=== PATIENT | female | born 1970 | race Caucasian/White ===

== ENCOUNTER 2021-06-02 16:27 | Observation (INO) | payer BC ==
[~2021-06-02] VITALS: Ht 157.5 cm; Wt 82.1 kg
[2021-06-02] MEDS ORDERED: ASPIRIN 325 MG TAB PO ONE (18:15)
[2021-06-02] MEDS ORDERED: ONDANSETRON HCL INJ 2MG/ML 2ML 2 MG/ML VIAL IV PRN (18:30)
[2021-06-02] MEDS ORDERED: ASPIRIN 81 MG CHEW TAB PO ONE (18:30)
[2021-06-02] MEDS ORDERED: ASPIRIN 325 MG TAB ONE (18:34)
[2021-06-02 19:40] VITALS: BP 154/76
[2021-06-02 20:08] VITALS: BP 154/76
[2021-06-02 22:12] VITALS: BP 154/76
[2021-06-02] MEDS ORDERED: OMEPRAZOLE20 MG PO (23:18)
[2021-06-02] MEDS ORDERED: PHENDIMETRAZIN105 MG PO (23:18)
[2021-06-02 23:50] VITALS: BP 130/63
[2021-06-03] VITALS (8 sets, daily range): BP systolic 120–147; BP diastolic 55–88
[2021-06-03] MEDS ORDERED: DIPHENHYDRAMINE HCL 25 MG CAP PO PRN (01:15)
[2021-06-03] MEDS ORDERED: HYDRALAZINE HCL 20 MG/ML VIAL IV PRN (01:15)
[2021-06-03] MEDS ORDERED: POTASSIUM CHLORIDE 20 MEQ TAB CR PO PRN (01:15)
[2021-06-03] MEDS ORDERED: LIDOCAINE 4% PATCH TP PRN (01:15)
[2021-06-03] MEDS ORDERED: MELATONIN 5 MG TABLET PO PRN (01:15)
[2021-06-03] MEDS ORDERED: DEXTROSE 50% SYRINGE 50 ML IV PRN (01:15)
[2021-06-03] MEDS ORDERED: BENZONATATE 100 MG CAP PO PRN (01:15)
[2021-06-03] MEDS ORDERED: SIMETHICONE 80 MG CHEW PO PRN (01:15)
[2021-06-03] MEDS ORDERED: HYDROCODONE/APAP 5MG-325MG TAB PO PRN (01:15)
[2021-06-03] MEDS ORDERED: ALBUTEROL/IPRATROPIUM 3 ML NEB NEB PRN (01:15)
[2021-06-03] MEDS ORDERED: DOCUSATE SODIUM 100 MG CAP PO PRN (01:15)
[2021-06-03] MEDS ORDERED: ACETAMINOPHEN 325 MG TAB PO PRN (01:15)
[2021-06-03] MEDS ORDERED: ONDANSETRON HCL INJ 2MG/ML 2ML 2 MG/ML VIAL IV PRN (01:15)
[2021-06-03 02:14] LABS: CREATINE KINASE MB 0.6 ng/mL (0-5.0)
[2021-06-03 05:19] LABS: CHOL/HDL RATIO 4.2 (3.0-3.6); MAGNESIUM 1.9 MG/DL (1.3-2.1)
[2021-06-03 05:42] LABS: THYROID STIMULATING HORMONE 5.423 uIU/mL (0.350-4.940)
[2021-06-03] MEDS: PANTOPRAZOLE SOD 40 MG TABEC PO SCH (07:30)
[2021-06-03] MEDS: ASPIRIN 325 MG TAB EC PO SCH (09:00)
[2021-06-03 10:29] LABS: BASOPHILS # (AUTO) 0.1 (0.0-0.1); BASOPHILS % 0.7 % (0.0-1.0); EOSINOPHILS # (AUTO) 0.1 (0.0-0.4); EOSINOPHILS % 1.6 % (0.0-6.0); HEMATOCRIT 36.6 % (34.2-44.1); HEMOGLOBIN 11.6 g/dL (12.0-16.0); LYMPHOCYTES # (AUTO) 2.2 (1.0-3.2); LYMPHOCYTES % 32.5 % (18.0-39.1); MEAN CORPUSCULAR HEMOGLOBIN 32.4 pg (28-32); MEAN CORPUSCULAR HGB CONC 31.7 g/dL (31-35); MEAN CORPUSCULAR VOLUME 102.2 fL (81-99); MONOCYTES # (AUTO) 0.6 (0.2-0.8); MONOCYTES % 8.2 % (4.4-11.3); NEUTROPHILS # (AUTO) 3.8 (2.1-6.9); NEUTROPHILS % 56.9 % (38.7-80.0); PLATELET COUNT 316 x10e3/uL (140-360); RED BLOOD COUNT 3.58 x10e6/uL (3.6-5.1); RED CELL DISTRIBUTION WIDTH 14.1 % (11.7-14.4)
[2021-06-03 10:32] LABS: CREATINE KINASE 42 IU/L (29-168)
[2021-06-03 11:04] LABS: ALBUMIN 3.4 g/dL (3.5-5.0); ANION GAP 12.7 mmol/L (8-16); CALCIUM 8.7 mg/dL (8.4-10.2); CHOL/HDL RATIO 4.3 (3.0-3.6); CREATININE, SERUM 0.7 mg/dL (0.57-1.11); POTASSIUM 3.7 mmol/L (3.5-5.1)
[2021-06-03 11:23] LABS: THYROID STIMULATING HORMONE 4.346 uIU/mL (0.350-4.940)
[2021-06-03] MEDS ORDERED: MECLIZINE HCL 12.5 MG TAB PO PRN (13:15)
[2021-06-03] MEDS: ACETAMIN/BUTALBITAL/CAFFEINE TAB PO PRN ×2 (13:26→21:12)
[2021-06-03] MEDS ORDERED: SCOPOLAMINE 1.5 MG PATCH TOP ONE (14:00)
[2021-06-03] MEDS: ENOXAPARIN SOD INJ 40 MG/0.4 ML SYR SC SCH (17:00)
[2021-06-03 19:02] LABS: CREATINE KINASE MB 0.6 ng/mL (0-5.0)
[2021-06-04 03:35] VITALS: BP 125/72
[2021-06-04 05:02] LABS: BASOPHILS # (AUTO) 0.1 (0.0-0.1); BASOPHILS % 0.8 % (0.0-1.0); EOSINOPHILS # (AUTO) 0.1 (0.0-0.4); EOSINOPHILS % 1.8 % (0.0-6.0); HEMATOCRIT 36.9 % (34.2-44.1); LYMPHOCYTES # (AUTO) 2.4 (1.0-3.2); LYMPHOCYTES % 39.4 % (18.0-39.1); MEAN CORPUSCULAR HEMOGLOBIN 32.5 pg (28-32); MEAN CORPUSCULAR HGB CONC 32.5 g/dL (31-35); MONOCYTES # (AUTO) 0.5 (0.2-0.8); MONOCYTES % 7.8 % (4.4-11.3); PLATELET COUNT 301 x10e3/uL (140-360); RED BLOOD COUNT 3.69 x10e6/uL (3.6-5.1); RED CELL DISTRIBUTION WIDTH 13.6 % (11.7-14.4)
[2021-06-04 05:23] LABS: ANION GAP 10.7 mmol/L (8-16); CALCIUM 8.7 mg/dL (8.4-10.2); CREATININE, SERUM 0.74 mg/dL (0.57-1.11); POTASSIUM 3.7 mmol/L (3.5-5.1)
[2021-06-04] MEDS: PANTOPRAZOLE SOD 40 MG TABEC PO SCH (07:30)
[2021-06-04] MEDS: ASPIRIN 325 MG TAB EC PO SCH (08:25)
[2021-06-04 08:26] VITALS: BP 132/79
[2021-06-04 08:40] VITALS: BP 132/79
[2021-06-04 12:27] VITALS: BP 133/72
[2021-06-04] MEDS ORDERED: ONDANSETRON HCL 4 MG ORAL DISINTEGRATING TAB PO PRN (12:45)
== END 2021-06-04 12:58 | disposition home or self-care (01) ==
LOC: FSED 16:50 → ERHOLD 18:20 → MED/SURG2 19:25
PROVIDERS: ADMIT Internal Medicine; ATTEND Internal Medicine
DX: R42 Dizziness and giddiness (principal); R07.89 Other chest pain; K21.9 Gastro-esophageal reflux disease without esophagitis; Z82.49 Family history of ischemic heart disease and other diseases of the circulatory system; R51.9 Headache, unspecified; Z20.822 Contact with and (suspected) exposure to COVID-19
CPT/HCPCS: 36415 ×2; 70450; 70551; 71045; 80048; 80053 ×2; 80061; 81003; 82550; 82553 ×2; 83036; 83735; 84443; 84484 ×2; 85025 ×3; 93005; 93017; 93306; 93880; 94799 ×3; 99284; G0378 ×3; S0164; U0002; J1650

== ENCOUNTER 2022-06-27 07:31 | Emergency (ER) | payer BC ==
[~2022-06-27] VITALS: Ht 157.5 cm; Wt 82.1 kg
[~2022-06-27 07:31] MED LIST: OMEPRAZOLE20 MG PO; PHENDIMETRAZIN105 MG PO
== END 2022-06-27 08:45 | disposition home or self-care (01) ==
LOC: ER 07:33
DX: S63.694A Other sprain of right ring finger, initial encounter (principal); W23.2XXA Caught, crushed, jammed or pinched between a moving and stationary object, initial encounter; Y92.89 Other specified places as the place of occurrence of the external cause; K21.9 Gastro-esophageal reflux disease without esophagitis
CPT/HCPCS: 99283

== ENCOUNTER 2023-03-30 11:11 | Emergency (ER) | payer BC, OTHER ==
[~2023-03-30] VITALS: Ht 157.5 cm; Wt 92.5 kg
[~2023-03-30 11:11] MED LIST changes: +CELEBREX200 MG PO; +GABAPENTIN300 MG PO
[2023-03-30 11:20] VITALS: O2SAT 98
[2023-03-30] MEDS ORDERED: THERAFLU MS SE1 EACH PO (12:01)
[2023-03-30] MEDS ORDERED: AZITHROMYCIN250 MG PO (12:01)
[2023-03-30] MEDS ORDERED: VENTOLIN HFA18 GM INH (12:19)
== END 2023-03-30 12:20 | disposition home or self-care (01) ==
LOC: FSED 11:22
DX: R50.9 Fever, unspecified (principal); J10.1 Influenza due to other identified influenza virus with other respiratory manifestations; R05.9 Cough, unspecified; R53.81 Other malaise; R53.83 Other fatigue; R51.9 Headache, unspecified; Z11.52 Encounter for screening for COVID-19
CPT/HCPCS: 0223U; 71046; 83518; 87400; 99282